=== PATIENT | female | born 1955 ===

== ENCOUNTER → 2019-06-04 | Day surgery (SDC) | payer BC ==
[~2019-06-04] MED LIST: Acetaminophen TAB* 325 MG PO PRN; Buffered Lidocaine 1% SYRIN* 1 ML/SYRINGE INTRADERM ONE; Bupivacaine 0.25% SDV PF* 10 ML VIAL INJ ONE; Dexamethasone IV* 4 MG/ML 1 ML (4 MG) IV SLOW PU ONE; Dexamethasone IV* 4 MG/ML 1 ML (4 MG) ONE; DiMENhydriNATE IV* 50 MG/ML VIAL IV PUSH PRN; EPHEDrine (Pressors)* 50 MG/ML VIAL ONE; Famotidine TAB* 20 MG ONE; Famotidine TAB* 20 MG PO ONE; Ketorolac INJ* 30 MG/ML 1 ML VIAL IV PRN; Ketorolac INJ* 30 MG/ML 1 ML VIAL ONE; Lactated Ringers 1000 ML Bag* 1,000 ML IV SCH; Lidocaine 2% PF * 5 ML VIAL ONE; Midazolam* 1 MG/ML 2 ML VIAL (2 MG) ONE; Naloxone* 0.4 MG/ML 1 ML VIAL IV PRN; Ondansetron INJ* 2 MG/ML VIAL ONE; Propofol* 10 MG/ML 20 ML BTL ONE; Rocuronium* 10 MG/ML VIAL ONE; Sugammadex * 200 MG/2 ML VIAL IV PUSH ONE; ceFAZolin 2 GM PREMIX in ORs 2 GM/50 ML BAG ONE; fentaNYL* 50 MCG/ML 2 ML VIAL (100 MCG VIAL) IV PRN; fentaNYL* 50 MCG/ML 2 ML VIAL (100 MCG VIAL) ONE; oxyCODONE/Acetamin 5/325 MG* TAB PO PRN
--- NOTE | 2019-06-04 16:11 | BRIEFOPN ---
Brief Operative/Procedure Note - Operation Details Pre-Op Diagnosis: symptomatic cholelithiasis Post-Op Diagnosis: same as above Procedures: Laparoscopic cholecystectomy Surgeon(s)/Proceduralists: Dr. Hoover. Assist: ARACELI Pisano; SHRADDHA Avendano Anesthesia: GET Estimated Blood Loss: 30cc; IV fluids 1500cc Findings: same as above Specimen(s)/Culture(s) Description: gallbladder Complications: none
[2019-06-04 17:05] VITALS: BP 132/96
--- NOTE | 2019-06-04 21:49 | OP ---
CC: Dr. Nan Bailon * DATE OF OPERATION: 06/04/19 - SDS DATE OF : 53 SERVICE: General Surgery. SURGEON: Leidy Hoover MD LACING CUTTER: ARACELI Gottlieb ANESTHESIOLOGIST: Dr. Nathan Potter. ANESTHESIA: General endotracheal anesthesia. PRE-OP DIAGNOSIS: Symptomatic cholelithiasis. POST-OP DIAGNOSIS: Symptomatic cholelithiasis. OPERATIVE PROCEDURE: Laparoscopic cholecystectomy. ESTIMATED BLOOD LOSS: Minimal, less than 10 cc. SPECIMEN: Gallbladder. INDICATIONS FOR SURGERY: Ms. Pineda is a very pleasant 63-year-old female with a history of symptomatic cholelithiasis; therefore she wished to undergo an elective laparoscopic cholecystectomy. She understood that the risks included, but were not limited to bleeding, infection, injury to nearby structures such as the common bile duct. She also understood the alternatives and the benefits and she wished to proceed. DESCRIPTION OF PROCEDURE: The patient was brought back to the operating room and placed on the operating table in the supine position. Sequential compression devices were placed on the bilateral lower extremities for DVT prophylaxis. Antibiotics with Ancef was administered prior to incision. General endotracheal anesthesia was induced. The patient's left arm was tucked. Her abdomen was prepped and draped in normal sterile fashion and prior to beginning the procedure, a time-out was performed verifying the patient's name, date of , and the procedure to be performed. Next, using a Veress needle at Valente's point in the left upper quadrant, the abdomen was entered after administering 0.25% Marcaine. Once the Veress needle was intraabdominal, a saline drop test was performed, which was positive and the abdomen was then insufflated to 15 mmHg. Next, 0.25% Marcaine was infiltrated into the supraumbilical fold. An incision was made just above the umbilicus and then the abdomen was entered under direct visualization using Optiview technique with a 5-mm trocar. Once this was done, general inspection with a laparoscope showed that there was no injury that had been made upon entry into the abdomen. The Veress needle was located in the left upper quadrant and no apparent injury had been made upon that entry. Therefore, the Veress needle was removed and the remaining 3 trocars were placed under direct visualization after administering local anesthesia. A 12-mm trocar was placed just to the right of the falciform, another 5-mm trocar was placed just in the right upper quadrant in the midclavicular line, and another 5-mm trocar was placed in the right lateral abdomen. Next, the fundus of the gallbladder was grasped and elevated above the liver. There were some omental attachments that were divided with electrocautery. After this, the infundibulum was grasped and was retracted anteriorly and the peritoneum on either side of the gallbladder was divided. Next, attention was turned towards skeletonizing the cystic duct and cystic artery. This was done with great care. There was a small lymph node that was also identified. Once the critical view was obtained and the cystic artery and cystic duct were skeletonized, pictures were taken to confirm this view and then the cystic duct and cystic artery were both clipped once distally and twice proximally and then divided. The gallbladder was then taken off the liver bed using electrocautery. A small hole was made at the very end and a small amount of bile did seep out and this was suctioned out. The gallbladder was placed into an EndoCatch bag and removed from the abdomen as a specimen. The right upper quadrant was copiously irrigated with normal saline and hemostasis was obtained in the liver bed using electrocautery. Once this was confirmed, the 12-mm trocar was removed and the fascial site was closed using an 0 Vicryl suture on the suture passer. Once this was done, final inspection of the abdominal cavity showed that hemostasis was obtained and desufflation was obtained and all the trocars were removed under direct visualization. The skin was closed using interrupted 4-0 Monocryl suture. Sterile dressing was then placed. The patient's anesthesia was reversed and she was taken to the PACU in stable condition. At the end of the case, all counts were correct and I was present during the entirety of the case. [id number] #: [id number]
== END | disposition home or self-care (01) ==
LOC: OR 11:51
PROVIDERS: ATTEND Surgery
DX: K80.10 Calculus of gallbladder with chronic cholecystitis without obstruction (principal); K21.9 Gastro-esophageal reflux disease without esophagitis
CPT/HCPCS: 88304; A9270-GY; J0690; J1100; J1885; J2250; J2405; J2704; J3010; J3490

== ENCOUNTER 2022-05-03 06:40 | Inpatient (IN) ==
[~2022-05-03 06:40] MED LIST changes: -Acetaminophen TAB* 325 MG PO PRN; +Buffered Lidocaine 1% SYRIN 1 ml INTRADERM ONE; -Buffered Lidocaine 1% SYRIN* 1 ML/SYRINGE INTRADERM ONE; -Bupivacaine 0.25% SDV PF* 10 ML VIAL INJ ONE; -Dexamethasone IV* 4 MG/ML 1 ML (4 MG) IV SLOW PU ONE; -Dexamethasone IV* 4 MG/ML 1 ML (4 MG) ONE; -DiMENhydriNATE IV* 50 MG/ML VIAL IV PUSH PRN; -EPHEDrine (Pressors)* 50 MG/ML VIAL ONE; -Famotidine TAB* 20 MG ONE; -Famotidine TAB* 20 MG PO ONE; +Heparin 5000 UNITS/ML 1 mL VIAL ONE; -Ketorolac INJ* 30 MG/ML 1 ML VIAL IV PRN; -Ketorolac INJ* 30 MG/ML 1 ML VIAL ONE; -Lactated Ringers 1000 ML Bag* 1,000 ML IV SCH; +Lactated Ringers 1000 ml BAG 1,000 ML IV SCH; -Lidocaine 2% PF * 5 ML VIAL ONE; -Midazolam* 1 MG/ML 2 ML VIAL (2 MG) ONE; +Naloxone 0.4 mg VIAL 0.4 mg/ml 1 ml VIAL IV PRN; -Naloxone* 0.4 MG/ML 1 ML VIAL IV PRN; +Ondansetron 4 mg VIAL 2 MG/ML 2 ml VIAL IV PRN; -Ondansetron INJ* 2 MG/ML VIAL ONE; -Propofol* 10 MG/ML 20 ML BTL ONE; -Rocuronium* 10 MG/ML VIAL ONE; -Sugammadex * 200 MG/2 ML VIAL IV PUSH ONE; +ceFAZolin 2 GM PREMIX 2 GM/50 ML BAG ONE; -ceFAZolin 2 GM PREMIX in ORs 2 GM/50 ML BAG ONE; +fentaNYL 100 mcg/2 ml 50 MCG/ML VIAL IV PRN; -fentaNYL* 50 MCG/ML 2 ML VIAL (100 MCG VIAL) IV PRN; -fentaNYL* 50 MCG/ML 2 ML VIAL (100 MCG VIAL) ONE; -oxyCODONE/Acetamin 5/325 MG* TAB PO PRN; +oxyCODONE/Acetamin 5/325 mg TAB PO PRN
[2022-05-03] MEDS ORDERED: Succinylcholine 200 mg VIAL 20 mg/ml 10 ml VIAL (200 mg) ONE (07:02)
[2022-05-03] MEDS ORDERED: Propofol 10 MG/ML 20 ML BTL ONE ×2 (07:02→08:25)
[2022-05-03] MEDS ORDERED: Lidocaine 2% PF 5 ML VIAL ONE (07:02)
[2022-05-03] MEDS ORDERED: Dexamethasone IV 4 MG/ML VIAL 1 ml VIAL ONE (07:02)
[2022-05-03] MEDS ORDERED: fentaNYL 100 mcg/2 ml 50 MCG/ML VIAL ONE (07:02)
[2022-05-03] MEDS ORDERED: Ondansetron 4 mg VIAL 2 MG/ML 2 ml VIAL ONE (07:02)
[2022-05-03] MEDS ORDERED: ISOSULFAN BLUE 1% 5 ML VIAL 10 MG/ML SUBCUT ONE (07:08)
[2022-05-03] MEDS ORDERED: Bupivacaine 0.5% 50 ML MDV VIAL ONE (07:08)
[2022-05-03] MEDS ORDERED: Methylene Blue 0.5 % 50 MG/10 ML AMP IV ONE (07:08)
[2022-05-03] MEDS ORDERED: Bupivacaine 0.5% SDV PF 30ML VIAL ONE (07:09)
[2022-05-03] MEDS ORDERED: Albuterol HFA INHALER 8 gm MDI INH ONE (08:09)
[2022-05-03] MEDS ORDERED: Phenylephrine 40 mcg/mL 10mL (400mcg) SYRINGE ONE (11:31)
[2022-05-03] MEDS ORDERED: ceFAZolin 1 GM ADVAN 1 GM ADDV.VIAL IVPB ONE (11:52)
[2022-05-03] MEDS ORDERED: Acetaminophen IV 1 GM/100ML 1,000 MG/100 ML BAG IV ONE (13:10)
[2022-05-03] MEDS ORDERED: Morphine 2 MG/ML SYRINGE IV PRN (13:51)
[2022-05-03] MEDS ORDERED: Benzocaine (plain) Lozenge 15 MG MT PRN (13:53)
[2022-05-03] MEDS ORDERED: Omeprazole 20 mg CAP (NF) PO SCH (14:00)
[2022-05-03] MEDS ORDERED: ceFAZolin 2 GM in NS PREMIX 2 GM/100 ML BAG IVPB SCH ×2 (14:00→20:00)
[2022-05-03] MEDS ORDERED: Scopolamine 1 mg/72hr PATCH TRANSDERM SCH (14:00)
[2022-05-03] MEDS: Heparin 5000 UNITS/ML 1 mL VIAL SUBCUT SCH ×2 (16:04→22:10)
[2022-05-03] MEDS: HYDROcodone/ACETAMIN 5/325 mg TAB PO PRN (18:10)
[2022-05-04] MEDS: HYDROcodone/ACETAMIN 5/325 mg TAB PO PRN ×2 (03:10→10:00)
[2022-05-04] MEDS: Heparin 5000 UNITS/ML 1 mL VIAL SUBCUT SCH (06:11)
[2022-05-04 07:35] VITALS: BP 94/61
== END 2022-05-04 11:40 | disposition home or self-care (01) | DRG 580 ==
LOC: AA 06:40 → SSU 16:28
PROVIDERS: ADMIT Student in an Organized Health Care Education/Training Program; ATTEND Student in an Organized Health Care Education/Training Program